=== PATIENT | female | born 1995 | race Caucasian/White ===

== ENCOUNTER 2019-04-18 06:08 | Inpatient (IN) ==
[2019-04-18] MEDS ORDERED: ONDANSETRON 4 MG/2 ML VIAL IV PRN (06:49)
[2019-04-18] MEDS ORDERED: LACTATED RINGERS 500 ML IV PRN (06:49)
[2019-04-18] MEDS ORDERED: MEPERIDINE 50 MG/1 ML VIAL IV PRN (06:49)
[2019-04-18] MEDS ORDERED: INFLUENZA VIRUS VACCINE 0.5 ML SYRINGE IM ONE (07:06)
[2019-04-18 07:09] LABS: Basophils % 0.1 % (0.0-0.8); Eosinophils # 0.1 10*3/uL (0.0-0.87); Eosinophils % 0.5 % (0.00-10.9); Hematocrit 28.1 VOL% (35.7-47.0); Hemoglobin 8.8 GM/DL (12.0-16.0); Immature Granulocytes % 0.7 %; Immature Granulocytes Absolute 0.08 #; Lymphocytes # 2.5 10*3/uL (1.4-4.0); Lymphocytes % 21.9 % (21.3-54.2); Mean Corpuscular HGB Conc 31.3 GM/DL (32-36); Mean Corpuscular Volume 81.7 FL (87-102); Mean Platelet Volume 10.1 FL (9.6-12.0); Monocytes % 6.4 % (1.7-12.7); Neutrophils % 70.4 % (38.7-73.9); Platelet Count 256 T/CUMM (130-400); Red Blood Count 3.44 MC/CUMM (3.8-5.5); Red Cell Distribution Width 15.8 % (9.3-17.3); White Blood Count 11.2 T/CUMM (4-12)
[2019-04-18] MEDS: LACTATED RINGERS 1,000 ML IV SCH ×2 (07:30→15:30)
[2019-04-18] MEDS ORDERED: ALUMINUM/MAGNES/SIMETH MAX STR 30 ML UDCUP PO PRN (07:50)
[2019-04-18] MEDS ORDERED: OXYTOCIN/LR 20 UNIT/1,000 ML BAG IV SCH (08:00)
[2019-04-18] MEDS ORDERED: ONDANSETRON 4 MG/2 ML VIAL IV ONE (12:59)
[2019-04-18] MEDS ORDERED: LACTATED RINGERS 1,000 ML IV ONE (12:59)
[2019-04-18] MEDS ORDERED: ePHEDrine 50 MG/ML AMP IV PRN (12:59)
[2019-04-18] MEDS ORDERED: hydrOXYzine HCL 25 MG/1 ML VIAL IM PRN (12:59)
[2019-04-18] MEDS ORDERED: NALOXONE 0.4 MG/ML VIAL IV PRN (12:59)
[2019-04-18] MEDS ORDERED: FAMOTIDINE 20 MG/2 ML VIAL IV ONE ×2 (12:59→13:09)
[2019-04-18] MEDS ORDERED: diphenhydrAMINE 50 MG/1 ML VIAL IV PRN ×2 (12:59)
[2019-04-18] MEDS ORDERED: PROMETHAZINE 25 MG/1 ML VIAL IM ONE (12:59)
[2019-04-18] MEDS ORDERED: CITRIC ACID/SODIUM CITRATE 30 ML UDCUP PO ONE (12:59)
[2019-04-18] MEDS ORDERED: fentaNYL 2 MCG/ROPIV 0.2% EPID 100 ML EPIDURAL SCH (13:00)
[2019-04-18] MEDS ORDERED: ACETAMINOPHEN 500 MG TABLET PO PRN (14:58)
[2019-04-18 15:02] LABS: Apearance,Urine CLEAR (Clear); Bilirubin,Urine Negative (Negative); Blood, Urine Negative (Negative); Glucose,Urine (UA) Negative (Negative); Ketones,Urine Negative (Negative); Mucus,Urine Occasional /LPF (Occasional); Nitrite,Urine Negative (Negative); Protein,Urine Negative; RBC,Urine 2 /HPF (0-4); Urine Color Straw (Yellow); Urine Urobilinogen < 2.0 EU/DL (0.2-1.0); WBC,Urine <1 /HPF (0-6)
[2019-04-18] MEDS ORDERED: TRANEXAMIC ACID 1,000 MG/10 ML VIAL ONE (22:34)
[2019-04-18] MEDS ORDERED: miSOPROStoL 200 MCG TABLET ONE (22:34)
[2019-04-18] MEDS ORDERED: CARBOPROST TROMETHAMINE 250 MCG/ML AMP IM ONE (22:35)
[2019-04-18] MEDS ORDERED: METHYLERGONOVINE 0.2 MG/1 ML AMP ONE (22:35)
[2019-04-18] MEDS ORDERED: METHYLERGONOVINE 0.2 MG/1 ML AMP IM ONE (22:52)
[2019-04-18] MEDS ORDERED: OXYTOCIN/LR 20 UNIT/1,000 ML BAG IV PRN (22:55)
[2019-04-18] MEDS ORDERED: MEASLES/MUMPS/RUBELLA VACCINE 0.5 ML VIAL SUBCUT ONE (23:02)
[2019-04-18] MEDS ORDERED: WITCH HAZEL PADS 100/JAR TOP PRN (23:02)
[2019-04-18] MEDS ORDERED: DIPH/TET/ACEL PERT BOOSTER VACCINE 0.5 ML VIAL IM ONE (23:02)
[2019-04-18] MEDS ORDERED: LANOLIN 50% CREAM 0.3 OZ TUBE TOP PRN (23:02)
[2019-04-18] MEDS ORDERED: IBUPROFEN 800 MG TABLET PO PRN (23:02)
[2019-04-18] MEDS ORDERED: HYDROCORTISONE 2.5% RECTAL CREAM 30 GM TUBE TOP PRN (23:02)
[2019-04-18] MEDS ORDERED: RHO(D) IMMUNE GLOBULIN 300 MCG SYRINGE IM ONE (23:02)
[2019-04-18] MEDS ORDERED: BISACODYL 10 MG SUPP RECTAL PRN (23:02)
[2019-04-18] MEDS ORDERED: BENZOCAINE 20%/MENTHOL 0.5% SPRAY 56 GM CAN TOP PRN (23:02)
[2019-04-19] MEDS: ACETAMINOPHEN/CODEINE 300-30 MG TABLET PO PRN ×3 (01:59→21:49)
[2019-04-19 05:49] LABS: Basophils % 0.2 % (0.0-0.8); Eosinophils % 0.3 % (0.00-10.9); Hematocrit 28.5 VOL% (35.7-47.0); Hemoglobin 8.7 GM/DL (12.0-16.0); Immature Granulocytes % 0.5 %; Immature Granulocytes Absolute 0.06 #; Lymphocytes # 2.1 10*3/uL (1.4-4.0); Lymphocytes % 15.7 % (21.3-54.2); Mean Corpuscular HGB Conc 30.5 GM/DL (32-36); Mean Corpuscular Volume 80.7 FL (87-102); Mean Platelet Volume 10.5 FL (9.6-12.0); Neutrophils % 78.3 % (38.7-73.9); Platelet Count 235 T/CUMM (130-400); Red Blood Count 3.53 MC/CUMM (3.8-5.5); Red Cell Distribution Width 15.9 % (9.3-17.3); White Blood Count 13.1 T/CUMM (4-12)
[2019-04-19] MEDS: FERROUS SULFATE 325 MG TABLET PO SCH ×2 (10:05→21:34)
[2019-04-19] MEDS: DOCUSATE SODIUM 100 MG CAPSULE PO SCH ×2 (10:05→21:34)
[2019-04-20 07:30] VITALS: BP 95/53
[2019-04-20] MEDS ORDERED: DIPH/TET/ACEL PERT BOOSTER VACCINE 0.5 ML VIAL IM ONE (08:26)
[2019-04-20] MEDS ORDERED: INFLUENZA VIRUS VACCINE 0.5 ML SYRINGE IM ONE (08:26)
[2019-04-20] MEDS: FERROUS SULFATE 325 MG TABLET PO SCH (09:16)
[2019-04-20] MEDS: DOCUSATE SODIUM 100 MG CAPSULE PO SCH (09:16)
== END 2019-04-20 13:20 | disposition home or self-care (01) | DRG 560 ==
LOC: N.LDOUT 06:08 → N.LD 06:09 → N.OB 04-19 01:25
PROVIDERS: ADMIT Obstetrics & Gynecology; ATTEND Obstetrics & Gynecology